=== PATIENT | male | born 1970 | race Caucasian/White ===

== ENCOUNTER → 2021-07-21 | Day surgery (SDC) | payer BC ==
[~2021-07-21] MED LIST: ACETAMINOPHEN 1000 MG/100 ML 100 ML IV ONE; ANDROGEL TOP; ANDROGEL1.25 GM IM; ASPIRIN81 MG PO; CYCLOBENZAPRINE5 MG PO; DESFLURANE 240 ML BTL INH ONE; DEXAMETHASONE SOD PHOS INJ 4 MG/ML SDV ONE; FLONASE ALLERG9.9 ML INH; KETOROLAC TROMETHAMINE 30 MG/ML VIAL ONE; LOSARTAN POTAS100 MG PO; MULTIVITAMIN1 EACH PO; ONDANSETRON HCL INJ 2MG/ML 2ML 2 MG/ML VIAL ONE; PHENTERMINE H37.5 MG PO; POVIDONE IODINE 0.05% 0.05 % ML PO ONE; PROPOFOL IV EMULSION 10 MG/ML 20 ML VIAL ONE; VITAMIN B COMP1 EACH PO; VITAMIN D310 MCG PO
[2021-07-21 10:10] VITALS: BP 118/68
== END | disposition home or self-care (01) ==
LOC: OR 05:46
PROVIDERS: ATTEND Specialist
DX: G56.02 Carpal tunnel syndrome, left upper limb (principal); G47.33 Obstructive sleep apnea (adult) (pediatric); I10 Essential (primary) hypertension; Z20.822 Contact with and (suspected) exposure to COVID-19; Z79.82 Long term (current) use of aspirin; Z79.899 Other long term (current) drug therapy
CPT/HCPCS: 29848; 93005; J0131; J0690; J1100; J1885; J2405; J2704; U0002